=== PATIENT | male | born 1940 | race Caucasian/White ===

== ENCOUNTER 2017-11-16 11:20 | Inpatient (IN) ==
[2017-11-16] MEDS ORDERED: Iohexol 300 MG/ML 50 ML Vial (for Rad Diag) IVCONTRAST ONE ×2 (12:00→16:51)
[2017-11-16] MEDS ORDERED: Lidocaine PF 1% Inj 5 ML Syringe INFILTRATN ONE (12:00)
[2017-11-16] MEDS ORDERED: Neostigmine Inj 5 MG/5 ML Syringe IV.PUSH ONE (12:00)
[2017-11-16] MEDS ORDERED: Glycopyrrolate Inj 1 MG/5 ML Syringe IV.PUSH ONE (12:00)
[2017-11-16] MEDS ORDERED: Phenylephrine/NS 1000 MCG/10ML Syringe IV.PUSH ONE (12:00)
[2017-11-16] MEDS ORDERED: Metoprolol Inj 5 MG/5 ML Vial IV.PUSH ONE (12:00)
[2017-11-16] MEDS ORDERED: Bupivacaine/Epinephrine PF Inj 0.5% 30 ML Vial ONE (12:59)
[2017-11-16] MEDS ORDERED: Sodium Chlor 0.9% Inj 500 ML IV.SIG SCH (13:00)
[2017-11-16] MEDS ORDERED: Metoprolol Tartrate 25 MG Tablet PO SCH (13:00)
[2017-11-16] MEDS ORDERED: Chlorhexidine Gluconate 2% 1 Pack (2 Cloths) TOPICAL SCH (13:00)
[2017-11-16] MEDS ORDERED: Heparin 10,000 UNITS/10 ML Vial (for IV use) ONE (13:02)
[2017-11-16] MEDS ORDERED: Heparin - SQ 10,000 UNITS/ML Vial SQ ONE (13:02)
[2017-11-16] MEDS ORDERED: Protamine Sulfate Inj 50 MG/5 ML Vial ONE (13:02)
[2017-11-16] MEDS ORDERED: ceFAZolin 1 GM Premix Inj 1 GM/50 ML FROZ.PIGGY IV.SIG ONE (14:00)
[2017-11-16] MEDS ORDERED: fentaNYL Citrate Inj 100 MCG/2 ML Ampul ONE ×2 (16:33)
--- NOTE | 2017-11-16 17:03 | MP ---
cc: Grabiel Lundberg MD DATE OF OPERATION: 11/16/2017 PREOPERATIVE DIAGNOSIS: Infrarenal abdominal aortic aneurysm. POSTOPERATIVE DIAGNOSIS: Infrarenal abdominal aortic aneurysm. PROCEDURE: Percutaneous endovascular aneurysm repair. SURGEON: Aleksander Lundberg MD PERMANENT MOLD SUPERVISOR: ANIVAL Lagos ANESTHESIA: General endotracheal. DESCRIPTION OF PROCEDURE: With the patient in the supine position, general endotracheal anesthesia was induced, the abdomen, both groins and thighs prepped with Betadine and draped in a sterile fashion. Appropriate IV antibiotic prophylaxis was administered and, following a protocol timeout, the skin and subcutaneous tissues surrounding the proposed right and left common femoral access sites were preemptively infiltrated with 0.5% Marcaine with epinephrine. Utilizing ultrasound guidance, 18-gauge needles were introduced into the right and left mid-common femoral lumens, J-wires advanced under fluoroscopic guidance into both iliac arteries. The 18-gauge needles were exchanged for 7-Tunisian hemostatic sheaths which were deployed over the J-wires. Angled Glidewires were then navigated under fluoroscopic guidance into the suprarenal aorta. Perclose devices were pre-positioned at the 10 and 2 o'clock positions bilaterally. The 7-Tunisian hemostatic sheaths were re-deployed. An angiographic pigtail catheter was then advanced into the suprarenal aorta and flush aortogram accomplished after adequately outlining the origin of the renal arteries and allowing length measurements. The angled Glidewires were exchanged over the Berenstein catheters for Amplatz guidewires. A 16-Tunisian hemostatic sheath was deployed on the right, 12-Tunisian on the left and guided into the sub-renal aorta. The patient was systemically heparinized with 5000 units. ACT measured about 300. The main body endoprosthesis was pre-deployed immediately distal to the origin of the inferior-most right renal artery. The contralateral gate was then engaged with an angled Glidewire/Berenstein catheter combination. Retrograde contrast injection via the left femoral sheath adequately delineated the left common iliac bifurcation and allowed selection of the contralateral limb length. The contralateral limb was engaged within the main body and endoprosthesis then deployed. Repeat flush aortogram again adequately delineated the renal artery origins ensuring appropriate proximal deployment, which was completed. The entire endograft lumen, overlap and seal zone areas were gently balloon dilated with a Q50 Compliant balloon. Completion angiogram revealed secure repair with no endoleaks or technical defects and rapid flow into both common femoral arteries. Adequate hemostasis was achieved with removal of both the femoral hemostatic sheaths and deployment of the preplaced Perclose devices. Pedal pulses remained palpable bilaterally. Heparin was reversed with 50 mg of protamine. The patient returned to postanesthesia care in stable condition, having tolerated the procedure well. MD SETH Quiroga/CAROLINA , 04:29 PM , 05:02 PM
[2017-11-16] MEDS ORDERED: Metoprolol Inj 5 MG/5 ML Vial IV.PUSH PRN (18:13)
[2017-11-16] MEDS ORDERED: Atropine Inj 1 MG/ML Vial IV.PUSH STA (18:13)
[2017-11-17] MEDS ORDERED: amLODIPine 5 MG Tablet PO SCH (09:00)
== END 2017-11-17 17:45 | disposition home or self-care (01) ==
LOC: HSDI 11:20 → HCPC 17:46
PROVIDERS: ADMIT Surgery Vascular Surgery; ATTEND Surgery Vascular Surgery